=== PATIENT | male | born 1955 | race Caucasian/White ===

== ENCOUNTER 2019-06-08 04:10 | Outpatient (RCR) | payer MEDICARE, MEDICAID, SELFPAY | END 2019-06-13 00:01 | LOC: LAB 04:10 | PROVIDERS: Visit Provider Nurse Practitioner Family | DX: E11.9 Type 2 diabetes mellitus without complications (principal); I10 Essential (primary) hypertension; R33.9 Retention of urine, unspecified; G40.909 Epilepsy, unspecified, not intractable, without status epilepticus; B19.20 Unspecified viral hepatitis C 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; I48.91 Unspecified atrial fibrillation; E83.42 Hypomagnesemia; N39.0 Urinary tract infection, site not specified; E03.9 Hypothyroidism, unspecified; R94.5 Abnormal results of liver function studies | CPT/HCPCS: 36415; 80048; 83036; 85025 ==

== ENCOUNTER 2022-05-11 11:44 | Emergency (ER) | payer MEDICARE, MEDICAID, SELFPAY ==
[2022-05-11 11:45] VITALS: BP 168/81; PULSE 80; RESP 18; TEMP 36.8; O2SAT 95
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
--- NOTE | 2022-05-11 12:17 | XR_ITS ---
WS: [id number] XR hip RT 2-3V wo/w pel* [id number] REASON FOR EXAM: fall, pain laterally FINDINGS: Femoral head and neck appear intact. 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 Soft tissue calcifications along the tendon insertion surface of the lesser trochanter. Remainder of the proximal right femur is without abnormality. Moderate subchondral sclerosis and osteophytosis of the acetabulum with relative preservation of the joint space. XR/XR hip RT 2-3V wo/w pel* [id number] IMPRESSION: No acute fracture. Mild osteoarthritis of the right hip Old soft tissue injury along the insertion surface of the lesser trochanter.
[2022-05-11 12:35] LABS: Basophils % 0.6 %; Eosinophils # 0.3 10^3/uL (0.0-0.8); Eosinophils % 4.2 %; Hematocrit 36.1 % (42.0-52.0); Hemoglobin 11.6 g/dL (11.7-16.6); Lymphocytes # 1.6 10^3/uL (0.8-4.8); Lymphocytes % 25.4 %; Mean Corpuscular HGB Conc 32.1 g/dL (30.0-36.0); Mean Corpuscular Hemoglobin 24.8 pg (28.0-34.0); Mean Corpuscular Volume 77.1 fl (80-94); Mean Platelet Volume 9.5 fL (7.4-10.4); Monocytes # 0.5 10^3/uL (0.2-0.9); Monocytes % 7.5 %; Neutrophils # 3.87 10^3/uL (1.8-7.7); Nucleated Red Blood Cells % 0 %; Platelet Count 279 10^3/cmm (130-400); Red Blood Count 4.68 10^6/uL (4.1-5.3); Red Cell Distribution Width 14.6 % (12.1-15.1); White Blood Count 6.3 10^3/uL (4.0-10.0)
[2022-05-11 13:17] LABS: Alanine Aminotransferase 11 U/L (0-41); Albumin Level 3.8 g/dL (3.5-5.2); Alkaline Phosphatase 95 U/L (40-130); Anion Gap 13.9 (5-19); Aspartate Amino Transferase 16 U/L (0-40); Blood Urea Nitrogen 41 mg/dL (8-23); Calcium 9.2 mg/dL (8.5-10.5); Carbon Dioxide 25 mmol/L (22-29); Chloride 102 mmol/L (98-107); Globulin 3.3 g/dL (1.3-4.6); Glomerular Filtration Rate 55.6 mL/min (90-130); Glucose 173 mg/dL (65-115); Osmolality Calculated 296 mOsm/kg (285-295); Potassium 4.9 mmol/L (3.5-5.1); Salicylate 0.6 mg/dL (3-10); Sodium 136 mmol/L (136-145); Thyroid Stimulating Hormone 1.43 uIU/mL (0.27-4.20); Total Bilirubin 0.2 mg/dL (0.15-1.2); Total Protein 7.1 g/dL (6.6-8.7)
[2022-05-11 13:18] LABS: Acetaminophen < 5.0 ug/mL (10-30); Alcohol Level < 10 mg/dL (0-10)
--- NOTE | 2022-05-11 15:00 | ECG_ITS ---
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 Measurements Intervals [place] Rate: 77 P: 13 MO: 149 QRS: 68 QRSD: 83 T: 77 QT: 376 QTc: 427 Interpretive Statements SINUS RHYTHM NONSPECIFIC T-WAVE ABNORMALITY No previous ECG available for comparison Electronically Signed On 05-12-2022 0:13:48 MEDICAL TRANSCRIPTION SUPERVISOR by Leslee Mandujano M.D. [id number]
--- NOTE | 2022-05-11 15:05 | PC.NURSE ---
pt was found getting out of bed on his own and walking to the hallway. pt was returned to room, educated provided on fall risk and to call staff for assistance prior to getting up. pt was found up walking in room again. pt appears unsteady on his feet. charge nurse notified that sitter is needed for safety.
--- NOTE | 2022-05-11 15:08 | PC.NURSE ---
pt ambulatory to restroom with assistance from staff. unable to collect urine sample at that time
[2022-05-11] MEDS: hyDROXYzine 25 mg Capsule 50 MG PO (15:27)
[2022-05-11] MEDS: quetiapine 100 mg Tablet PO (15:27)
== END 2022-05-11 18:27 ==
PROVIDERS: Emergency Provider Emergency Medicine
DX: F20.9 Schizophrenia, unspecified (principal); S70.00XA Contusion of unspecified hip, initial encounter; X58.XXXA Exposure to other specified factors, initial encounter; F91.9 Conduct disorder, unspecified
CPT/HCPCS: 36415; 73502; 80053; 80307; 84443; 85025; 93005; 99284

== ENCOUNTER 2022-05-15 13:13 | Outpatient (CLI) | payer MEDICARE, MEDICAID, SELFPAY ==
[2022-05-15 13:36] LABS: Basophils % 0.6 %; Eosinophils # 0.3 10^3/uL (0.0-0.8); Eosinophils % 3.7 %; Hematocrit 37.5 % (42.0-52.0); Lymphocytes # 1.6 10^3/uL (0.8-4.8); Lymphocytes % 22.5 %; Mean Corpuscular Hemoglobin 24.9 pg (28.0-34.0); Mean Corpuscular Volume 77.8 fl (80-94); Mean Platelet Volume 10.1 fL (7.4-10.4); Monocytes # 0.5 10^3/uL (0.2-0.9); Monocytes % 7.3 %; Neutrophils # 4.76 10^3/uL (1.8-7.7); Neutrophils % 65.5 %; Nucleated Red Blood Cells % 0 %; Platelet Count 307 10^3/cmm (130-400); Red Blood Count 4.82 10^6/uL (4.1-5.3); Red Cell Distribution Width 14.9 % (12.1-15.1); White Blood Count 7.3 10^3/uL (4.0-10.0)
[2022-05-15 13:51] LABS: Alanine Aminotransferase 12 U/L (0-41); Alkaline Phosphatase 100 U/L (40-130); Anion Gap 18.1 (5-19); Aspartate Amino Transferase 15 U/L (0-40); Blood Urea Nitrogen 39 mg/dL (8-23); Calcium 9.4 mg/dL (8.5-10.5); Carbon Dioxide 24 mmol/L (22-29); Chloride 100 mmol/L (98-107); Globulin 3.4 g/dL (1.3-4.6); Glomerular Filtration Rate 55.6 mL/min (90-130); Glucose 125 mg/dL (65-115); Osmolality Calculated 295 mOsm/kg (285-295); Potassium 5.1 mmol/L (3.5-5.1); Sodium 137 mmol/L (136-145); Total Bilirubin 0.2 mg/dL (0.15-1.2); Total Protein 7.4 g/dL (6.6-8.7)
[2022-05-15 13:52] LABS: Estmated Average Glucose 169; Hemoglobin A1C 7.5 % (4.0-6.0)
== END 2022-05-15 13:14 | disposition home or self-care (01) ==
PROVIDERS: Visit Provider Nurse Practitioner Family
DX: E11.8 Type 2 diabetes mellitus with unspecified complications (principal)
CPT/HCPCS: 80053; 82248; 83036; 85025

== ENCOUNTER 2022-05-27 09:26 | Emergency (ER) | payer MEDICARE, MEDICAID, SELFPAY ==
[2022-05-27 09:27] VITALS: BP 166/72; PULSE 80; RESP 17; TEMP 36.9; O2SAT 96; BMI 29.7
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
[2022-05-27 10:03] LABS: Basophils # 0.1 10^3/uL (0.0-0.1); Basophils % 1.1 %; Eosinophils # 0.3 10^3/uL (0.0-0.8); Eosinophils % 5.5 %; Hematocrit 35.5 % (42.0-52.0); Lymphocytes # 1.3 10^3/uL (0.8-4.8); Lymphocytes % 22.3 %; Mean Corpuscular Hemoglobin 24.7 pg (28.0-34.0); Mean Corpuscular Volume 79.6 fl (80-94); Monocytes # 0.4 10^3/uL (0.2-0.9); Monocytes % 7.1 %; Neutrophils # 3.61 10^3/uL (1.8-7.7); Neutrophils % 63.6 %; Nucleated Red Blood Cells % 0 %; Platelet Count 212 10^3/cmm (130-400); Red Blood Count 4.46 10^6/uL (4.1-5.3); Red Cell Distribution Width 15.9 % (12.1-15.1); White Blood Count 5.7 10^3/uL (4.0-10.0)
[2022-05-27 10:23] LABS: Alanine Aminotransferase 13 U/L (0-41); Albumin Level 3.8 g/dL (3.5-5.2); Alkaline Phosphatase 95 U/L (40-130); Anion Gap 15.9 (5-19); Aspartate Amino Transferase 17 U/L (0-40); Blood Urea Nitrogen 32 mg/dL (8-23); Calcium 9.6 mg/dL (8.5-10.5); Carbon Dioxide 21 mmol/L (22-29); Chloride 104 mmol/L (98-107); Glucose 225 mg/dL (65-115); Osmolality Calculated 294 mOsm/kg (285-295); Potassium 5.9 mmol/L (3.5-5.1); Sodium 135 mmol/L (136-145); Total Bilirubin 0.2 mg/dL (0.15-1.2); Total Protein 6.8 g/dL (6.6-8.7)
[2022-05-27 10:24] LABS: Acetaminophen < 5.0 ug/mL (10-30); Salicylate < 0.3 mg/dL (3-10)
--- NOTE | 2022-05-27 10:31 | ECG_ITS ---
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 Measurements Intervals [place] Rate: 80 P: 53 NV: 171 QRS: 73 QRSD: 82 T: 83 QT: 338 QTc: 391 Interpretive Statements SINUS RHYTHM Compared to ECG 05/11/2022 15:44:02 T-wave abnormality no longer present Electronically Signed On 05-27-2022 18:11:56 DORMITORY SUPERVISOR by Leslee Mandujano M.D. [id number]
--- NOTE | 2022-05-27 10:31 | XRR_ITS ---
PROCEDURE INFORMATION: Exam: XR Chest Exam date and time: 05/27/2022 10:59 AM Age: 66 years old Clinical indication: Cough and dyspnea; Additional info: Dyspnea/cough TECHNIQUE: Imaging protocol: Radiologic exam of the chest. Views: 1 view. COMPARISON: CT abdomen pelvis w con* [id number] 03/23/2019 10:42 AM FINDINGS: Lungs: Lung volumes are somewhat decreased which may be due to body habitus. Lung [place] are clear for degree of inspiration. No infiltrates. Pleural spaces: Unremarkable. No pleural effusion. No pneumothorax. Heart/Mediastinum: Unremarkable. No cardiomegaly. Bones/joints: Unremarkable. XR/XR chest 1V portable [id number] IMPRESSION: Decreased lung volumes otherwise negative chest.
[2022-05-27 10:55] LABS: Add Urine Microscopic? YES; Bilirubin Urine Neg (Negative); Blood Urine Neg (Negative); Glucose Urine UA 2+ (Normal); Ketones Urine Negative (Negative); Leukocyte Esterase Urine Negative (Negative); Nitrate Urine Negative (Negative); Protein Urine Trace (Negative); Urine Appearance Clear (CLEAR); Urine Color Yellow (Yellow); Urobilinogen Urine Neg (Negative); pH Urine 5 (5-7)
[2022-05-27 10:57] LABS: Amphetamines Screen Urine Negative (Negative); Barbiturates Screen Urine Negative (Negative); Benzodiazepines Screen Urine Negative (Negative); Cocaine Screen Urine Negative (Negative); Opiate Screen Urine Negative (Negative); PCP Screen Urine Negative (Negative); THC Screen Urine Negative (Negative)
[2022-05-27 10:58] LABS: Add Urine Culture? No; WBC Urine RARE /hpf (0-5)
[2022-05-27 10:59] LABS: Alcohol Level < 10 mg/dL (0-10)
[2022-05-27 11:02] LABS: SARS Covid-2 Antigen negative (Negative)
[2022-05-27 12:43] LABS: Influenza A by IFA negative (Negative); Influenza B by IFA negative (Negative)
[2022-05-27] MEDS: calcium chloride 10% Syr 10 mL 1 GM IVP (14:10)
[2022-05-27] MEDS: sodium polystyrene sulfonate 15 gm/60 mL Btl 30 GM PO (14:10)
[2022-05-27 15:14] LABS: Blood Urea Nitrogen 34 mg/dL (8-23); Calcium 10.5 mg/dL (8.5-10.5); Carbon Dioxide 21 mmol/L (22-29); Chloride 105 mmol/L (98-107); Glomerular Filtration Rate 67.4 mL/min (90-130); Glucose 72 mg/dL (65-115); Osmolality Calculated 290 mOsm/kg (285-295); Sodium 137 mmol/L (136-145)
[2022-05-27 17:01] VITALS: BP 162/76; PULSE 76; O2SAT 96
[2022-05-27 18:34] VITALS: BP 149/69; PULSE 83; RESP 18; O2SAT 98
--- NOTE | 2022-05-27 18:38 | PC.NURSE ---
Pt was sleeping and rolled over and pulled his IV out. Pressure applied and bandage applied
[2022-05-27 20:56] VITALS: BP 148/72; PULSE 81; RESP 18; O2SAT 96
== END 2022-05-27 21:30 ==
PROVIDERS: Family Medicine; Emergency Provider Emergency Medicine
DX: F20.9 Schizophrenia, unspecified (principal); F41.1 Generalized anxiety disorder; R45.851 Suicidal ideations; Z20.822 Contact with and (suspected) exposure to COVID-19; E78.5 Hyperlipidemia, unspecified; E11.9 Type 2 diabetes mellitus without complications
CPT/HCPCS: 36415; 71045; 80048; 80053; 80306; 80307; 81001; 85025; 87426; 87804; 93005; 96374; 99285; J3490

== ENCOUNTER 2022-08-09 05:22 | Emergency (ER) | payer MEDICARE, MEDICAID, SELFPAY ==
[2022-08-09 05:22] VITALS: BP 184/81; PULSE 83; RESP 16; TEMP 37.1; O2SAT 100
--- NOTE | 2022-08-09 05:37 | CTR_ITS ---
PROCEDURE INFORMATION: Exam: CT Head Without Contrast Exam date and time: 08/09/2022 5:54 AM Age: 66 years old Clinical indication: Injury or trauma; Fall; Blunt trauma (contusions or hematomas); Additional info: Fall head injury TECHNIQUE: Imaging protocol: Computed tomography of the head without contrast. Radiation optimization: All CT scans at this facility use at least one of these dose optimization techniques: automated exposure control; mA and/or kV adjustment per patient size (includes targeted exams where dose is matched to clinical indication); or iterative reconstruction. REPORTING DATA: Count of CT and Cardiac NM exams in prior 12 months: This patient has received 0 known CTs and 0 known cardiac nuclear medicine studies in the 12 months prior to the current study. COMPARISON: No relevant prior studies available. RADIATION DOSE METRICS: Total DLP (mGy-cm): 1051.08 FINDINGS: Brain: There is cortical atrophy. Helm-white matter differentiation is preserved. No edema, mass effect or midline shift. No acute intracranial hemorrhage. Cerebral ventricles: No ventriculomegaly. Paranasal sinuses: Mucosal thickening noted in the maxillary sinuses. Mastoid air cells: No mastoid effusion. Bones/joints: No acute fracture. Soft tissues: Unremarkable. CT/CT head wo con* [id number] IMPRESSION: No acute intracranial abnormality.
[2022-08-09] MEDS: lidocaine-epi 1% 20 mL INJ INJECTION (05:51)
--- NOTE | 2022-08-09 06:23 | W.ED.FALL ---
HPI - Fall General: Chief Complaint: Fall Stated Complaint: FALL Time Seen by Provider: 08/09/22 05:28 Source: patient and EMS History of Present Illness: 66-year-old male half-way patient who fell striking his wheelchair with his head. He remembers the event he says. He has a history of hepatitis C as well as diabetes. Bleeding is controlled at this point. He is swelling, mild pain, and lacerations to his forehead. MD complaint: fall Onset (ago): minute(s) Fall from: standing Fall witnessed: yes, by living facility staff Place fall occurred: half-way/SNF Loss of consciousness: None Prolonged down time: no Context: tripped/slipped Location of injury: head and face Associated symptoms-after fall: Denies abdominal pain, chest pain, confusion, headache(s), lightheadedness, neck pain or short of breath Review of Systems Const: Denies: fever(s) Eyes: Denies: change in vision ENMT: Denies: throat pain Card: Denies: chest pain or lightheadedness Resp: Denies: dyspnea GI: Denies: abdominal pain Musc: Denies: neck pain Neuro: Denies: headache(s) or confusion PFSH ED PFSH: Medical History Anemia, unspecified Epilepsy, unspecified, not intractable, without status epilepticus Generalized anxiety disorder Hyperlipidemia, unspecified Hypothyroidism, unspecified Insomnia, unspecified Schizophrenia, unspecified Type 2 diabetes mellitus with hyperglycemia Unspecified disorder of adult personality and behavior Unspecified viral 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 Venous insufficiency (chronic) (peripheral) Social History Lives independently: No Housing: [facility] Physical Exam Const: COMMON NORMALS: no acute distress and alert GENERAL APPEARANCE: cooperative and frail appearing (mildly); not ill appearing HENMT: COMMON NORMALS: Normal external nose present HEAD & SCALP: abrasion (scalp, frontal), contusion (forehead) and laceration (eyebrow, L) FACE & SINUS: face symmetric NOSE: Normal external nose present and Normal nares present Eye: COMMON NORMALS: Equal, round and reactive pupils present and EOMs intact bilaterally PUPIL: Yes Equal, round and reactive pupils present Neck/C-Spine: GENERAL: Yes trachea midline CERVICAL SPINE: No Cervical spine tenderness Chest: CHEST: Yes Symmetrical chest wall rise Resp: COMMON NORMALS: normal respiratory effort, No use of accessory muscles and clear to auscultation bilaterally AUSCULTATION: clear to auscultation bilaterally Cardio: COMMON NORMALS: regular rate and regular rhythm RATE: regular rate RHYTHM: regular rhythm GI: COMMON NORMALS: Normal to inspection, nondistended, normoactive bowel sounds present and non-tender Neuro: RELL COMA SCALE: document GCS findings [place] coma scale eye opening: Spontaneous Rell coma scale verbal response: Orientated [place] coma scale motor response: Obey commands Rell coma scale total score: 15 SENSORIUM/ORIENTATION: Yes alert CRANIAL NERVES: Yes CN normal except as noted Skin: NARRATIVE SKIN EXAM: see above Course Vital Signs: Vital signs: Vital Signs Temperature 98.7 F 08/09/22 05:22 Pulse Rate 83 08/09/22 05:22 Respiratory Rate 16 08/09/22 05:22 Blood Pressure 184/81 08/09/22 05:22 Pulse Oximetry 100 08/09/22 05:22 Oxygen Delivery Me thod 08/09/22 05:22 MDM - Fall Medical Decision Making Laceration repaired with 5-0 Prolene suture. He appears to be baseline mental status allan. CT report is pending. If it is normal, he will be allowed back to the half-way. Lab Data Radiology Impressions Head CT 08/09/22 05:37 IMPRESSION: No acute intracranial abnormality. Discharge Plan Discharge Patient Disposition: Home Clinical Impression: Contusion of face, scalp and neck, Forehead laceration Condition: Stable Prescriptions: No Action atorvastatin 10 mg tablet 10 mg PO DAILY hydrochlorothiazide 50 mg tablet 50 mg PO DAILY hydroxyzine HCl 50 mg Tablet 50 mg PO TID aspirin [Aspir-81] 81 mg Tablet,Delayed Release (Dr/Ec) 81 mg PO DAILY magnesium hydroxide [Milk of Magnesia] 400 mg/5 mL Suspension 30 ml PO DAILY PRN (Reason: Constipation) carboxymethylcellulose sodium [Refresh Tears] 0.5 % Drops 1 drp OPHTHALMIC (EYE) BID levothyroxine 50 mcg tablet 50 mcg PO DAILY metformin 1,000 mg tablet 1,000 mg PO BID lisinopril 10 mg tablet 10 mg PO DAILY Glucagon Emergency Kit (human) 1 mg Recon Soln 1 mg SUBCUT Q20M PRN (Reason: Hyperglycemia) Rx Instructions: until target blood sugar attained docusate sodium 100 mg Tablet 200 mg PO DAILY loratadine 10 mg Tablet 10 mg PO DAILY insulin aspart U-100 [Novolog FlexPen U-100 Insulin] 100 unit/mL (3 mL) insulin pen See Rx Instructions .ROUTE .COMPLEX Rx Instructions: PER SLIDING SCALE DIRECTED melatonin 1 mg Tablet 1 mg PO QPM Levemir FlexTouch U-100 Insuln 100 unit/mL (3 mL) insulin pen 42 unit SUBCUT BEDTIME sertraline 150 mg Capsule 175 mg PO DAILY Seroquel 50 mg Tablet 50 mg PO DAILY Seroquel 100 mg Tablet 100 mg PO BID haloperidol lactate 5 mg/mL Solution 2 mg IM Q24H PRN (Reason: Agitation) Rx Instructions: until symptoms of delerium controlled or stopped Discharge Orders: Discharge ED (Routine); Ordered 08/09/22 Ordered By: Babak Martinez Patient Instructions: Scalp Contusion in Adults (ED), Head Laceration (ED) Activity Restrictions/Additional Instructions: Sutures out in 7 days. Wash with soap and running water. Return for worsening mental status, bleeding, worsening swelling, drainage, etc. Coding Level of Care Code ED [employer]fuels Plant Superintendent for Keaton Ramos
[2022-08-09 06:47] VITALS: BP 167/67; RESP 16; O2SAT 99
[2022-08-09 07:11] VITALS: BP 175/91
== END 2022-08-09 11:32 | disposition home or self-care (01) ==
PROVIDERS: Emergency Provider Emergency Medicine
DX: S01.112A Laceration without foreign body of left eyelid and periocular area, initial encounter (principal); S00.83XA Contusion of other part of head, initial encounter; Z79.82 Long term (current) use of aspirin; Z79.84 Long term (current) use of oral hypoglycemic drugs; Z79.4 Long term (current) use of insulin; E78.5 Hyperlipidemia, unspecified; E11.9 Type 2 diabetes mellitus without complications; W19.XXXA Unspecified fall, initial encounter; Y92.129 Unspecified place in nursing home as the place of occurrence of the external cause
CPT/HCPCS: 12011; 70450; 99284

== ENCOUNTER 2022-10-07 11:48 | Outpatient (CLI) | payer MEDICARE, MEDICAID, SELFPAY ==
[2022-10-07 12:40] LABS: Anion Gap 15.9 (5-19); Blood Urea Nitrogen 25 mg/dL (8-23); Carbon Dioxide 24 mmol/L (22-29); Chloride 97 mmol/L (98-107); Glucose 119 mg/dL (65-115); Osmolality Calculated 280 mOsm/kg (285-295); Potassium 4.9 mmol/L (3.5-5.1); Sodium 132 mmol/L (136-145)
== END 2022-10-07 11:49 | disposition home or self-care (01) ==
PROVIDERS: Visit Provider Nurse Practitioner Family
DX: E87.1 Hypo-osmolality and hyponatremia (principal)
CPT/HCPCS: 80048

== ENCOUNTER 2022-12-21 10:59 | Outpatient (CLI) | payer MEDICARE, MEDICAID, SELFPAY ==
[2022-12-21 11:34] LABS: Blood Urea Nitrogen 25 mg/dL (8-23); Calcium 8.9 mg/dL (8.5-10.5); Carbon Dioxide 22 mmol/L (22-29); Chloride 89 mmol/L (98-107); Glomerular Filtration Rate 55.4 mL/min (90-130); Glucose 172 mg/dL (65-115); Osmolality Calculated 266 mOsm/kg (285-295); Sodium 124 mmol/L (136-145)
[2022-12-21 11:38] LABS: Anion Gap 18.1 (5-19); Potassium 5.1 mmol/L (3.5-5.1)
== END 2022-12-21 11:00 | disposition home or self-care (01) ==
LOC: LAB 11:00
PROVIDERS: Visit Provider Nurse Practitioner Family
DX: Z01.89 Encounter for other specified special examinations (principal)
CPT/HCPCS: 80048

== ENCOUNTER → 2023-02-02 09:56 | Outpatient (BNVA) | payer MEDICARE, MEDICAID, SELFPAY | PROVIDERS: Visit Provider Podiatrist Foot & Ankle Surgery | DX: I73.9 Peripheral vascular disease, unspecified (principal); L60.3 Nail dystrophy; Z79.84 Long term (current) use of oral hypoglycemic drugs; Z79.4 Long term (current) use of insulin; E11.9 Type 2 diabetes mellitus without complications | CPT/HCPCS: 11721; 99203 ==

== ENCOUNTER → 2023-05-05 10:07 | Outpatient (BNVA) | payer MEDICARE, MEDICAID, SELFPAY | PROVIDERS: Visit Provider Podiatrist Foot & Ankle Surgery | DX: E11.8 Type 2 diabetes mellitus with unspecified complications (principal); I73.9 Peripheral vascular disease, unspecified; L60.3 Nail dystrophy; Z79.4 Long term (current) use of insulin; Z79.84 Long term (current) use of oral hypoglycemic drugs | CPT/HCPCS: 11721 ==

== ENCOUNTER 2023-06-10 13:11 | Emergency (ER) | payer MEDICARE, MEDICAID, SELFPAY ==
[2023-06-10] VITALS (9 sets, daily range): BP systolic 156–207; BP diastolic 71–110; PULSE 64–100; RESP 16–20; TEMP 37; O2SAT 95–97; BMI 29.5
--- NOTE | 2023-06-10 13:35 | ECG_ITS ---
[facility] Test Date: 2023-06-10 Pat Name: Jose J Oneal Department: Room: Gender: Male Windshield Repair Technician: : 1955 Requested By: Wai Ding Order Number: [id number] Melvin MD: Juan Benites M.D. Measurements Intervals [place] Rate: 65 P: 59 W[place]: 171 QRS: 81 QRSD: 82 T: 85 QT: 414 QTc: 431 Interpretive Statements SINUS RHYTHM Compared to ECG 05/27/2022 10:51:03 No significant changes Electronically Signed On 06-10-2023 15:12:06 FORMING DEPARTMENT SUPERVISOR by Juan Benites M.D. [id number]
[2023-06-10 13:45] LABS: Basophils # 0.1 10^3/uL (0.0-0.1); Basophils % 0.8 %; Eosinophils # 0.4 10^3/uL (0.0-0.8); Eosinophils % 5.5 %; Hematocrit 35.9 % (37-53); Lymphocytes # 1.2 10^3/uL (0.8-4.8); Mean Corpuscular HGB Conc 32.6 g/dL (30-55); Mean Corpuscular Hemoglobin 25.2 pg (27-33); Mean Corpuscular Volume 77.4 fl (82-101); Mean Platelet Volume 10.1 fL (7.4-10.4); Monocytes # 0.6 10^3/uL (0.2-0.9); Monocytes % 8.8 %; Neutrophils # 4.16 10^3/uL (1.8-7.7); Neutrophils % 65.4 %; Nucleated Red Blood Cells % 0 %; Platelet Count 189 10^3/cmm (157-399); Red Blood Count 4.64 10^6/uL (3.85-5.65); Red Cell Distribution Width 14.8 % (12.1-15.1); White Blood Count 6.36 10^3/uL (3.29-11.43)
[2023-06-10 14:08] LABS: Alanine Aminotransferase 18 U/L (0-41); Albumin Level 3.3 g/dL (3.5-5.2); Alkaline Phosphatase 100 U/L (40-130); Anion Gap 18.7 (5-19); Aspartate Amino Transferase 14 U/L (0-40); Blood Urea Nitrogen 31 mg/dL (8-23); Calcium 8.9 mg/dL (8.5-10.5); Carbon Dioxide 22 mmol/L (22-29); Chloride 98 mmol/L (98-107); Globulin 3.4 g/dL (1.3-4.6); Glomerular Filtration Rate 40.7 mL/min (90-130); Glucose 328 mg/dL (65-115); Osmolality Calculated 297 mOsm/kg (285-295); Potassium 4.7 mmol/L (3.5-5.1); Sodium 134 mmol/L (136-145); Total Bilirubin 0.2 mg/dL (0.15-1.2); Total Protein 6.7 g/dL (6.6-8.7)
[2023-06-10 14:10] LABS: Acetaminophen < 5.0 ug/mL (10-30); Alcohol Level < 10 mg/dL (0-10); Salicylate < 0.3 mg/dL (3-10)
--- NOTE | 2023-06-10 14:25 | ED.C_ITS ---
HPI - Psych 2 General: Chief Complaint: Psychiatric Symptoms Stated Complaint: SI Time Seen by Provider: 06/10/23 13:12 Source: EMS Mode of arrival: EMS Limitations: no limitations History of Present Illness: 67-year-old male presents here from [facility] home with depression. He had made statements about being depressed and suicidal at the half-way when I speak to him he states he is severely depressed states he has not seen his kids in quite some time it is making him feel down but he states he is not suicidal he has no plans to kill himself states he is just very depressed. Denies any worsening improving factors. Associated symptoms: Reports depression; Deny suicidal ideation Review of Systems 2 Const: Denies: fever(s), chills, body aches or change in appetite ENMT: Denies: throat pain or dental pain Card: Denies: chest pain Resp: Denies: dyspnea GI: Denies: abdominal pain, nausea, vomiting or diarrhea Musc: Denies: neck pain or back pain Skin/Breast: Denies: rash Neuro: Denies: headache(s) Psych: Reports: depression; Denies: suicidal ideation PFSH ED 2 PFSH: Medical History Anemia, unspecified Epilepsy, unspecified, not intractable, without status epilepticus Generalized anxiety disorder Hyperlipidemia, unspecified Hypothyroidism, unspecified Insomnia, unspecified Schizophrenia, unspecified Type 2 diabetes mellitus with hyperglycemia Unspecified disorder of adult personality and behavior Unspecified viral 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 Venous insufficiency (chronic) (peripheral) Social History Lives independently: No Housing: Long Term Physical Exam 2 Const: COMMON NORMALS: no acute distress, patient oriented x3 and healthy appearing HENMT: COMMON NORMALS: normocephalic and atraumatic HEAD & SCALP: n ormocephalic and atraumatic Eye: COMMON NORMALS: Equal, round and reactive pupils present and EOMs intact bilaterally PUPIL: Yes Equal, round and reactive pupils present Neck/C-Spine: COMMON NORMALS: full ROM and supple Chest: COMMONS NORMALS: normal inspection of the chest Resp: COMMON NORMALS: normal respiratory effort Cardio: COMMON NORMALS: regular rate, regular rhythm and No murmurs present (Cardio) RATE: regular rate RHYTHM: regular rhythm Extremity: COMMON NORMALS: normal to inspection and full ROM Neuro: COMMON NORMALS: patient oriented x3, moves all extremities and no focal motor deficits Psych: COMMON NORMALS: mental status grossly normal, Normal thought process present and cooperative MOOD & AFFECT: Yes depressed mood THOUGHT PROCESS: Normal thought process present Skin: COMMON NORMALS: no rashes or lesions noted and no wounds GENERAL SKIN EXAM: no rashes or lesions noted Course 2 Vital Signs: Vital signs: Vital Signs Temperature 98.6 F 06/10/23 13:12 Pulse Rate 64 06/10/23 14:35 Respiratory Rate 17 06/10/23 14:35 Blood Pressure 156/91 06/10/23 14:35 Pulse Oximetry 96 06/10/23 14:35 Oxygen Delivery Me thod Room Air 06/10/23 14:35 MDM - Psych Medical Decision Making Patient presents here with depression he is not suicidal. Patient evaluated by her psychiatrist Dr. [place] who agrees he is stable for discharge back to the half-way he is to follow-up with [facility] return if worsening he understands agrees plan Medical Records I reviewed the patient's medical records. Lab Data I reviewed the patient's lab results. 06/10/23 13:32 06/10/23 13:32 Laboratory Results WBC 6.36 10^3/uL (3.29-11.43) 06/10/23 13:32 RBC 4.64 10^6/uL (3.85-5.65) 06/10/23 13:32 Hgb 11.70 g/dL (11.27-16.99) 06/10/23 13:32 Hct 35.9 % (37-53) L 06/10/23 13:32 MCV 77.4 fl (82-101) L 06/10/23 13:32 MCH 25.2 pg (27-33) L 06/10/23 13:32 MCHC 32.6 g/dL (30-55) 06/10/23 13:32 RDW 14.8 % (12.1-15.1) 06/10/23 13:32 Plt Count 189 10^3/cmm (157-399) 06/10/23 13:32 MPV 10.1 fL (7.4-10.4) 06/10/23 13:32 Neut % (Auto) 65.4 % 06/10/23 13:32 Lymph % (Auto) 19.0 % 06/10/23 13:32 [place] % (Auto) 8.8 % 06/10/23 13:32 Eos % (Auto) 5.5 % 06/10/23 13:32 Baso % (Auto) 0.8 % 06/10/23 13:32 Neut # (Auto) 4.16 10^3/uL (1.8-7.7) 06/10/23 13:32 Lymph # (Auto) 1.2 10^3/uL (0.8-4.8) 06/10/23 13:32 [place] # (Auto) 0.6 10^3/uL (0.2-0.9) 06/10/23 13:32 Eos # (Auto) 0.4 10^3/uL (0.0-0.8) 06/10/23 13:32 Baso # (Auto) 0.1 10^3/uL (0.0-0.1) 06/10/23 13:32 Nucleated RBC % (auto) 0 % 06/10/23 13:32 Nucleated RBCs # 0.0 /100WBC 06/10/23 13:32 Sodium 134 mmol/L (136-145) L 06/10/23 13:32 Potassium 4.7 mmol/L (3.5-5.1) 06/10/23 13:32 Chloride 98 mmol/L (98-107) 06/10/23 13:32 Carbon Dioxide 22 mmol/L (22-29) 06/10/23 13:32 Anion Gap 18.7 (5-19) 06/10/23 13:32 BUN 31 mg/dL (8-23) H 06/10/23 13:32 Creatinine 1.7 mg/dL (0.7-1.2) H 06/10/23 13:32 GFR Calculation 40.7 mL/min (90-130) L 06/10/23 13:32 Glucose 328 mg/dL (65-115) H 06/10/23 13:32 Calculated Osmolality 297 mOsm/kg (285-295) H 06/10/23 13:32 Calcium 8.9 mg/dL (8.5-10.5) 06/10/23 13:32 Total Bilirubin 0.2 mg/dL (0.15-1.2) 06/10/23 13:32 AST 14 U/L (0-40) 06/10/23 13:32 ALT 18 U/L (0-41) 06/10/23 13:32 Alkaline Phosphatase 100 U/L (40-130) 06/10/23 13:32 Total Protein 6.7 g/dL (6.6-8.7) 06/10/23 13:32 Albumin 3.3 g/dL (3.5-5.2) L 06/10/23 13:32 Globulin 3.4 g/dL (1.3-4.6) 06/10/23 13:32 Salicylates < 0.3 mg/dL (3-10) L 06/10/23 13:32 Urine Opiates Screen Negative ng/mL (Negative) 06/10/23 14:23 Acetaminophen < 5.0 ug/mL (10-30) L 06/10/23 13:32 Ur Barbiturates Screen Negative ng/mL (Negative) 06/10/23 14:23 Ur Phencyclidine Scrn Negative ng/mL (Negative) 06/10/23 14:23 Ur Amphetamines Screen Negative ng/mL (Negative) 06/10/23 14:23 U Benzodiazepines Scrn Negative ng/mL (Negative) 06/10/23 14:23 Urine Cocaine Screen Negative ng/mL (Negative) 06/10/23 14:23 U Marijuana (THC) Screen Negative ng/mL (Negative) 06/10/23 14:23 Ethyl Alcohol < 10 mg/dL (0-10) 06/10/23 13:32 SARS-CoV-2 Ag (Rapid) negative (Negative) 06/10/23 14:02 No radiology studies performed this visit Discharge Plan Discharge Patient Disposition: Home Clinical Impression: Schizophrenia, unspecified Depression Qualifiers: Depression Type: unspecified Qualified Code(s): F32.A - Depression, unspecified Condition: Stable Prescriptions: No Action atorvastatin 10 mg tablet 10 mg PO QPM hydroxyzine HCl 50 mg Tablet 50 mg PO TID aspirin [Aspir-81] 81 mg Tablet,Delayed Release (Dr/Ec) 81 mg PO DAILY magnesium hydroxide [Milk of Magnesia] 400 mg/5 mL Suspension 30 ml PO DAILY PRN (Reason: Constipation) carboxymethylcellulose sodium [Refresh Tears] 0.5 % Drops 1 drp OPHTHALMIC (EYE) BID PRN (Reason: Dry Eye(S)) levothyroxine 50 mcg tablet 50 mcg PO DAILY metformin 1,000 mg tablet 1,000 mg PO BID Glucagon Emergency Kit (human) 1 mg Recon Soln 1 mg SUBCUT Q20M PRN (Reason: Hyperglycemia) Rx Instructions: until target blood sugar attained docusate sodium 100 mg Tablet 200 mg PO DAILY loratadine 10 mg Tablet 10 mg PO DAILY melatonin 1 mg Tablet 1 mg PO QPM PRN (Reason: Sleep) Levemir FlexTouch U100 Insulin 100 unit/mL (3 mL) insulin pen 39 unit SUBCUT BID Trileptal 300 mg Tablet 300 mg PO BID amlodipine 10 mg tablet 10 mg PO DAILY hydrochlorothiazide 25 mg tablet 25 mg PO DAILY lisinopril 40 mg tablet 40 mg PO DAILY Abilify 10 mg Tablet 10 mg PO DAILY metoprolol tartrate 25 mg tablet 25 mg PO BID sodium chloride 1,000 mg Tablet,Soluble 1,000 mg PO DAILY fluoxetine 60 mg tablet 60 mg PO DAILY Discharge Orders: Discharge ED (Routine); Ordered 06/10/23 Ordered By: Wai Ding Discharge Diet: Advance as tolerated Discharge Activity: Resume usual activity Patient Instructions: Depression (ED) Coding Level of Care Code ED Mission Manager for Keaton Ramos
[2023-06-10 14:28] LABS: SARS Covid-2 Antigen negative (Negative)
[2023-06-10 14:47] LABS: Amphetamines Screen Urine Negative (Negative); Barbiturates Screen Urine Negative (Negative); Benzodiazepines Screen Urine Negative (Negative); Opiate Screen Urine Negative (Negative)
[2023-06-10 14:58] LABS: Cocaine Screen Urine Negative (Negative); PCP Screen Urine Negative (Negative); THC Screen Urine Negative (Negative)
--- NOTE | 2023-06-10 15:01 | PC.PHAR ---
have requested a mar from [facility] 3 times in the last hour
--- NOTE | 2023-06-10 16:22 | DCPLANNER ---
Message sent to [facility] on 06/10/23 at [id number]. [facility] to contact patient
--- NOTE | 2023-06-10 19:01 | PC.NURSE ---
This nurse spoke with guardian Ame, regarding transportation of patient back to [facility]. Ame said she was unavailable to transport patient herself, but gave nursing staff verbal consent to transport patient back to facility.
[2023-06-10] MEDS: hyDRALAzine 20 mg/mL INJ 1 mL 10 MG IM (19:36)
--- NOTE | 2023-06-10 21:11 | PC.NURSE ---
Report called to Subha at [facility]. Charge nurse informed that patient was headed back to residence with paperwork, belongings.
== END 2023-06-10 21:13 | disposition home or self-care (01) ==
PROVIDERS: Emergency Provider Emergency Medicine
DX: F32.A Depression, unspecified (principal); F20.9 Schizophrenia, unspecified; Z79.82 Long term (current) use of aspirin; Z79.4 Long term (current) use of insulin; Z79.84 Long term (current) use of oral hypoglycemic drugs; Z11.52 Encounter for screening for COVID-19; E78.5 Hyperlipidemia, unspecified; E11.9 Type 2 diabetes mellitus without complications; Z86.19 Personal history of other infectious and parasitic diseases
CPT/HCPCS: 36415; 80053; 80306; 80307; 85025; 87426; 93005; 96372; 99284; J0360

== ENCOUNTER 2024-01-28 08:14 | Emergency (ER) | payer MEDICARE, MEDICAID, SELFPAY ==
[2024-01-28 08:14] VITALS: BP 152/96; PULSE 70; RESP 17; TEMP 36.8; O2SAT 85; BMI 33.2
--- NOTE | 2024-01-28 08:18 | XR_ITS ---
WS: [id number] Examination: XR chest 1V portable [id number] Reason for Exam: psych Date: March 29, 2024 Comparison: None. Findings: The heart is not enlarged. The mediastinum is not widened on this rotated AP portable film There is no pulmonary edema or large effusion. There is no dense consolidation. XR/XR chest 1V portable [id number] Impression: No acute lung process is identified.
--- NOTE | 2024-01-28 08:31 | ED.C_ITS ---
HPI - Psych 2 General: Chief Complaint: Psychiatric Symptoms Stated Complaint: psych problems Time Seen by Provider: 01/28/24 08:14 Source: patient and EMS Mode of arrival: EMS Limitations: no limitations History of Present Illness: 68-year-old male with history of schizop hrenia along with TBI with behavioral disturbances patient lives at [facility]. Patient got angry this morning states he was in argument with another resident they did call them and asked: He instructed them patient been sent here for his violent behavior for likely psych admission has had previous psych admissions to likely in the past. He has been calm and cooperative here. Spoke to the [facility] and they state that he has been on every 15 checks the last day because he has made suicidal statements as well Associated symptoms: Deny depression Related Data Home Medications Medication Instructions Recorded Confirmed aspirin 81 mg tablet,delayed 81 mg PO QAM 05/11/22 01/28/24 release atorvastatin 10 mg tablet 10 mg PO QPM 05/11/22 01/28/24 carboxymethylcellulose sodium 0.5 1 drp ophthalmic (eye) BID PRN Dry 05/11/22 01/28/24 % eye drops (Refresh Tears) Eye(S) docusate sodium 100 mg tablet 200 mg PO QAM 05/11/22 01/28/24 glucagon 1 mg solution for 1 mg SUBCUT Q20M PRN Hyperglycemia 05/11/22 01/28/24 injection (Glucagon Emergency Kit) levothyroxine 50 mcg tablet 50 mcg PO QAM 05/11/22 01/28/24 loratadine 10 mg tablet 10 mg PO QAM 05/11/22 01/28/24 magnesium hydroxide 400 mg/5 mL 30 ml PO DAILY PRN Constipation 05/11/22 01/28/24 oral suspension (Milk of Magnesia) melatonin 1 mg tablet 1 mg PO QPM PRN Sleep 05/11/22 01/28/24 metformin 1,000 mg tablet 1,000 mg PO BID 05/11/22 01/28/24 amlodipine 10 mg tablet 10 mg PO DAILY 06/10/23 01/28/24 hydrochlorothiazide 25 mg tablet 25 mg PO DAILY 06/10/23 01/28/24 lisinopril 40 mg tablet 40 mg PO QAM 06/10/23 01/28/24 metoprolol tartrate 25 mg tablet 25 mg PO BID 06/10/23 01/28/24 sodium chloride 1,000 mg soluble 1,000 mg PO QAM 06/10/23 01/28/24 tablet cyanocobalamin (vitamin B-12) 250 250 mcg PO DAILY 12/01/23 01/28/24 mcg tablet insulin degludec 100 unit/mL 35 unit SUBCUT BID 12/01/23 01/28/24 subcutaneous solution (Tresiba U-100 Insulin) acetaminophen 325 mg tablet 650 mg PO Q4H PRN PAIN/FEVER 01/28/24 01/28/24 buspirone 10 mg tablet 10 mg PO TID 01/28/24 01/28/24 Previous Rx's Medication Instructions Recorded aripiprazole 10 mg tablet (Abilify) 10 mg PO DAILY #30 tabs 08/16/23 fluoxetine 20 mg capsule 60 mg (3 x 20 mg) PO DAILY #90 caps 08/16/23 hydroxyzine HCl 50 mg tablet 50 mg PO TID #90 tabs 08/16/23 oxcarbazepine 300 mg tablet 300 mg PO BID #60 tabs 08/16/23 (Trileptal) Allergies Allergy/AdvReac Type Severity Reaction Status Date / Time No Known Allergies Allergy Verified 12/01/23 10:24 Review of Systems 2 Const: Denies: fever(s), chills, body aches or change in appetite ENMT: Denies: throat pain or dental pain Card: Denies: chest pain Resp: Denies: dyspnea GI: Denies: abdominal pain, nausea, vomiting or diarrhea Musc: Denies: neck pain or back pain Skin/Breast: Denies: rash Neuro: Denies: headache(s) Psych: Reports: irritability; Denies: depression PFSH ED 2 PFSH: Medical History Psychiatric care Hyperlipidemia, unspecified Anemia, unspecified Epilepsy, unspecified, not intractable, without status epilepticus Venous insufficiency (chronic) (peripheral) Hypothyroidism, unspecified Type 2 diabetes mellitus with hyperglycemia Generalized anxiety disorder Unspecified viral 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 Insomnia, unspecified Unspecified disorder of adult personality and behavior Schizophrenia, unspecified Social History Lives independently: No Housing: Half-Way Physical Exam 2 Const: COMMON NORMALS: no acute distress, patient oriented x3 and healthy appearing HENMT: COMMON NORMALS: normocephalic and atraumatic HEAD & SCALP: n ormocephalic and atraumatic Eye: COMMON NORMALS: Equal, round and reactive pupils present and EOMs intact bilaterally PUPIL: Yes Equal, round and reactive pupils present Neck/C-Spine: COMMON NORMALS: full ROM and supple Chest: COMMONS NORMALS: normal inspection of the chest and normal palpation of entire chest wall Resp: COMMON NORMALS: normal respiratory effort, No retractions, No use of accessory muscles and clear to auscultation bilaterally AUSCULTATION: clear to auscultation bilaterally Cardio: COMMON NORMALS: regular rate, regular rhythm and No murmurs present (Cardio) RATE: regular rate RHYTHM: regular rhythm GI: COMMON NORMALS: Normal to inspection, nondistended, normoactive bowel sounds present, Soft to palpation, non-tender and no masses PALPATION: Yes Soft to palpation Extremity: COMMON NORMALS: normal to inspection and full ROM Neuro: COMMON NORMALS: patient oriented x3, moves all extremities and no focal motor deficits Psych: COMMON NORMALS: mental status grossly normal, Normal thought process present and cooperative THOUGHT PROCESS: Normal thought process present Skin: COMMON NORMALS: no rashes or lesions noted and no wounds GENERAL SKIN EXAM: no rashes or lesions noted Course 2 Vital Signs: Vital signs: Vital Signs Temperature 98.2 F 01/28/24 08:14 Pulse Rate 70 01/28/24 08:14 Respiratory Rate 17 01/28/24 08:14 Blood Pressure 152/96 01/28/24 08:14 Pulse Oximetry 85 L 01/28/24 08:14 MDM - Psych Medical Decision Making Patient presents here with anger outburst also history of schizophrenia patient here for [facility] for [facility] placement he was accepted to [facility] will transfer there for higher level of care geriatric psych Medical Records I reviewed the patient's medical records. Lab Data I reviewed the patient's lab results. 01/28/24 08:31 01/28/24 08:31 Radiology Impressions Chest X-Ray 01/28/24 08:18 Impression: No acute lung process is identified. Laboratory Results WBC 7.25 10^3/uL (3.29-11.43) 01/28/24 08:31 RBC 4.41 10^6/uL (3.85-5.65) 01/28/24 08:31 Hgb 11.50 g/dL (11.27-16.99) 01/28/24 08:31 Hct 35.0 % (37-53) L 01/28/24 08:31 MCV 79.4 fl (82-101) L 01/28/24 08:31 MCH 26.1 pg (27-33) L 01/28/24 08:31 MCHC 32.9 g/dL (30-55) 01/28/24 08:31 RDW 15.0 % (12.1-15.1) 01/28/24 08:31 Plt Count 212 10^3/cmm (157-399) 01/28/24 08:31 MPV 9.3 fL (7.4-10.4) 01/28/24 08:31 Neut % (Auto) 68.1 % 01/28/24 08:31 Lymph % (Auto) 14.3 % 01/28/24 08:31 [place] % (Auto) 8.4 % 01/28/24 08:31 Eos % (Auto) 7.6 % 01/28/24 08:31 Baso % (Auto) 1.0 % 01/28/24 08:31 Neut # (Auto) 4.94 10^3/uL (1.8-7.7) 01/28/24 08:31 Lymph # (Auto) 1.0 10^3/uL (0.8-4.8) 01/28/24 08:31 [place] # (Auto) 0.6 10^3/uL (0.2-0.9) 01/28/24 08:31 Eos # (Auto) 0.6 10^3/uL (0.0-0.8) 01/28/24 08:31 Baso # (Auto) 0.1 10^3/uL (0.0-0.1) 01/28/24 08:31 Nucleated RBC % (auto) 0 % 01/28/24 08: Nucleated RBCs # 0.0 /100WBC 01/28/24 08:31 Sodium 137 mmol/L (136-145) 01/28/24 08:31 Potassium 4.9 mmol/L (3.5-5.1) 01/28/24 08:31 Chloride 104 mmol/L (98-107) 01/28/24 08:31 Carbon Dioxide 19 mmol/L (22-29) L 01/28/24 08:31 Anion Gap 18.9 (5-19) 01/28/24 08:31 BUN 33 mg/dL (8-23) H 01/28/24 08:31 Creatinine 1.5 mg/dL (0.7-1.2) H 01/28/24 08:31 GFR Calculation 46.8 mL/min (90-130) L 01/28/24 08:31 Glucose 127 mg/dL (65-115) H 01/28/24 08:31 Calculated Osmolality 293 mOsm/kg (285-295) 01/28/24 08:31 Calcium 8.4 mg/dL (8.5-10.5) L 01/28/24 08:31 Total Bilirubin 0.2 mg/dL (0.15-1.2) 01/28/24 08:31 AST 18 U/L (0-40) 01/28/24 08:31 ALT 16 U/L (0-41) 01/28/24 08:31 Alkaline Phosphatase 103 U/L (40-130) 01/28/24 08:31 Total Protein 6.2 g/dL (6.6-8.7) L 01/28/24 08:31 Albumin 3.1 g/dL (3.5-5.2) L 01/28/24 08:31 Globulin 3.1 g/dL (1.3-4.6) 01/28/24 08:31 TSH 1.81 uIU/mL (0.27-4.20) 01/28/24 08:31 Free T4 0.84 ng/dL (0.82-1.77) 01/28/24 08:31 Salicylates < 0.3 mg/dL (3-10) L 01/28/24 08:31 Urine Opiates Screen Negative ng/mL (Negative) 01/28/24 08:52 Acetaminophen < 5.0 ug/mL (10-30) L 01/28/24 08:31 Ur Barbiturates Screen Negative ng/mL (Negative) 01/28/24 08:52 Ur Phencyclidine Scrn Negative ng/mL (Negative) 01/28/24 08:52 Ur Amphetamines Screen Negative ng/mL (Negative) 01/28/24 08:52 U Benzodiazepines Scrn Negative ng/mL (Negative) 01/28/24 08:52 Urine Cocaine Screen Negative ng/mL (Negative) 01/28/24 08:52 U Marijuana (THC) Screen Negative ng/mL (Negative) 01/28/24 08:52 Ethyl Alcohol < 10 mg/dL (0-10) 01/28/24 08:31 Influenza Type A Ag negative (Negative) 01/28/24 08:55 Influenza Type B Ag negative (Negative) 01/28/24 08:55 RSV Antigen Negative (Negative) 01/28/24 08:55 SARS-CoV-2 Ag (Rapid) negative (Negative) 01/28/24 08:55 All radiology interpretation(s) finalized by discharge EKG Data EKG 1: I personally reviewed and interpreted this EKG as follows: EKG interpretation date: 01/28/24 EKG interpretation time: 08:57 Interpretation: nsr hr [address] elevation qrs 81 qtc 412 Discharge Plan Discharge Patient Disposition: Xfer Short-Term Hosp Clinical Impression: Schizophrenia, unspecified, Outbursts of anger Condition: Stable Coding Level of Care Code ED J2Ee Java Developer for Keaton Ramos
--- NOTE | 2024-01-28 08:37 | PC.NURSE ---
Per Sherry, intermediate staff, the patient has been on 15 minute suicide watch due to statements he had been making. Patient has threatened to also attack staff and other residents. I asked the nurse at [facility] to please send over nurses notes reflecting this because the patient denies any suicidal thoughts.
[2024-01-28 08:39] LABS: Basophils # 0.1 10^3/uL (0.0-0.1); Eosinophils # 0.6 10^3/uL (0.0-0.8); Eosinophils % 7.6 %; Lymphocytes % 14.3 %; Mean Corpuscular HGB Conc 32.9 g/dL (30-55); Mean Corpuscular Hemoglobin 26.1 pg (27-33); Mean Corpuscular Volume 79.4 fl (82-101); Mean Platelet Volume 9.3 fL (7.4-10.4); Monocytes # 0.6 10^3/uL (0.2-0.9); Monocytes % 8.4 %; Neutrophils # 4.94 10^3/uL (1.8-7.7); Neutrophils % 68.1 %; Nucleated Red Blood Cells % 0 %; Platelet Count 212 10^3/cmm (157-399); Red Blood Count 4.41 10^6/uL (3.85-5.65); White Blood Count 7.25 10^3/uL (3.29-11.43)
--- NOTE | 2024-01-28 08:57 | ECG_ITS ---
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 Measurements Intervals [place] Rate: 68 P: 22 CA: 178 QRS: 58 QRSD: 81 T: 74 QT: 395 QTc: 421 Interpretive Statements SINUS RHYTHM Compared to ECG 06/10/2023 13:35:02 No significant changes Electronically Signed On 01-28-2024 13:31:44 CDT by Juan Benites M.D. [email or web address]
[2024-01-28 09:10] LABS: Alanine Aminotransferase 16 U/L (0-41); Albumin Level 3.1 g/dL (3.5-5.2); Alkaline Phosphatase 103 U/L (40-130); Anion Gap 18.9 (5-19); Aspartate Amino Transferase 18 U/L (0-40); Blood Urea Nitrogen 33 mg/dL (8-23); Calcium 8.4 mg/dL (8.5-10.5); Carbon Dioxide 19 mmol/L (22-29); Chloride 104 mmol/L (98-107); Free T4 Free Thyroxine 0.84 ng/dL (0.82-1.77); Globulin 3.1 g/dL (1.3-4.6); Glomerular Filtration Rate 46.8 mL/min (90-130); Glucose 127 mg/dL (65-115); Osmolality Calculated 293 mOsm/kg (285-295); Potassium 4.9 mmol/L (3.5-5.1); Sodium 137 mmol/L (136-145); Thyroid Stimulating Hormone 1.81 uIU/mL (0.27-4.20); Total Bilirubin 0.2 mg/dL (0.15-1.2); Total Protein 6.2 g/dL (6.6-8.7)
[2024-01-28 09:11] LABS: Acetaminophen < 5.0 ug/mL (10-30); Alcohol Level < 10 mg/dL (0-10); Salicylate < 0.3 mg/dL (3-10)
[2024-01-28 09:16] LABS: Amphetamines Screen Urine Negative (Negative); Barbiturates Screen Urine Negative (Negative); Benzodiazepines Screen Urine Negative (Negative); Cocaine Screen Urine Negative (Negative); Opiate Screen Urine Negative (Negative); PCP Screen Urine Negative (Negative); THC Screen Urine Negative (Negative)
[2024-01-28 09:19] LABS: RSV Transfer Patient (ED) Negative (Negative)
[2024-01-28 09:20] LABS: Influenza A by IFA negative (Negative); Influenza B by IFA negative (Negative); SARS Covid-2 Antigen negative (Negative)
--- NOTE | 2024-01-28 18:46 | PC.NURSE ---
Assumed care from Loretta CULVER at shift change; was informed that patient report was called to [facility] and patient currently awaiting transfer.
[2024-01-28 19:42] VITALS: BP 173/84; PULSE 65; O2SAT 96
--- NOTE | 2024-01-28 22:07 | PC.NURSE ---
Report was given to [facility] EMS crew by Anita CULVER; patient was transferred via ambulance to [facility] with all paperwork and belongings.
[2024-01-28 22:08] VITALS: BP 162/81; PULSE 64; O2SAT 96
[2024-01-28 22:09] VITALS: BP 162/81; PULSE 64; O2SAT 96
== END 2024-01-28 22:10 | disposition short-term general hospital (02) ==
PROVIDERS: Emergency Provider Emergency Medicine
DX: F20.9 Schizophrenia, unspecified (principal); R45.4 Irritability and anger; Z11.52 Encounter for screening for COVID-19; E78.5 Hyperlipidemia, unspecified; E11.9 Type 2 diabetes mellitus without complications; Z86.19 Personal history of other infectious and parasitic diseases
CPT/HCPCS: 36415; 71045; 80053; 80306; 80307; 84439; 84443; 85025; 87426; 87804; 87899; 93005; 99285

== ENCOUNTER 2024-03-27 09:21 | Emergency (ER) | payer MEDICARE, MEDICAID, SELFPAY ==
[2024-03-27 09:22] VITALS: BP 137/75; PULSE 66; RESP 18; TEMP 36.7; O2SAT 97; BMI 32.1
--- NOTE | 2024-03-27 09:27 | XRR_ITS ---
PROCEDURE INFORMATION: Exam: XR Right Ankle Exam date and time: 03/27/2024 9:32 AM Age: 68 years old Clinical indication: Injury or trauma; Other: Twisted ankle; Sprain or strain; Right; Additional info: Discomfort TECHNIQUE: Imaging protocol: Radiologic exam of the right ankle. Views: 3 or more views. COMPARISON: No relevant prior studies available. FINDINGS: Bones/joints: Oblique/comminuted fracturing of the distal fibula. Questionable abrupt cortical contour abnormality of the posterior malleolus of the tibia. Heel spur. Soft tissues: Diffuse soft tissue swelling about the ankle more prominent about the lateral aspect. Vasculature: Peripheral arterial vascular disease. XR/XR ankle RT min 3V* [id number] IMPRESSION: 1. Oblique/comminuted fracture of the distal fibula with associated soft tissue swelling. 2. Questionable contour abnormality of the posterior malleolus suggesting possible posterior malleolar fracture. CT should be performed for further assessment.
[2024-03-27 09:33] VITALS: BP 137/75; PULSE 67; O2SAT 96
--- NOTE | 2024-03-27 10:04 | ED_ITS ---
HPI - Extremity Problem General: Chief complaint: Extremity Injury, Lower Stated complaint: right ankle pain Time Seen by Provider: 03/27/24 09:23 History of Present Illness: 68-year-old male who presents emergency room from [facility] via [facility]. Yesterday he was standing urinating and somewhat twisted his ankle and fell. He is complaining of right ankle pain is also complaining of little bit of buttock discomfort initially said it is buttocks no longer hurt but his ankle still does he has some moderate swelling laterally he did not strike his head there is no loss consciousness he denies any other injury Associated symptoms: Deny chest pain, fever(s) or rash Related Data Home Medications Medication Instructions Recorded Confirmed aspirin 81 mg tablet,delayed 81 mg PO QAM 05/11/22 03/27/24 release atorvastatin 10 mg tablet 10 mg PO QPM 05/11/22 03/27/24 carboxymethylcellulose sodium 0.5 1 drp ophthalmic (eye) BID PRN Dry 05/11/22 03/27/24 % eye drops (Refresh Tears) Eye(S) docusate sodium 100 mg tablet 200 mg PO QAM 05/11/22 03/27/24 glucagon 1 mg solution for 1 mg SUBCUT Q20M PRN Hyperglycemia 05/11/22 03/27/24 injection (Glucagon Emergency Kit) levothyroxine 50 mcg tablet 50 mcg PO QAM 05/11/22 03/27/24 loratadine 10 mg tablet 10 mg PO QAM 05/11/22 03/27/24 magnesium hydroxide 400 mg/5 mL 30 ml PO DAILY PRN Constipation 05/11/22 03/27/24 oral suspension (Milk of Magnesia) metformin 1,000 mg tablet 1,000 mg PO BID 05/11/22 03/27/24 amlodipine 10 mg tablet 10 mg PO DAILY 06/10/23 03/27/24 hydrochlorothiazide 25 mg tablet 25 mg PO DAILY 06/10/23 03/27/24 lisinopril 40 mg tablet 40 mg PO QAM 06/10/23 03/27/24 metoprolol tartrate 25 mg tablet 25 mg PO BID 06/10/23 03/27/24 sodium chloride 1,000 mg soluble 1,000 mg PO QAM 06/10/23 03/27/24 tablet cyanocobalamin (vitamin B-12) 250 250 mcg PO DAILY 12/01/23 03/27/24 mcg tablet insulin degludec 100 unit/mL 35 unit SUBCUT BID 12/01/23 03/27/24 subcutaneous solution (Tresiba U-100 Insulin) acetaminophen 325 mg tablet 650 mg PO Q4H PRN PAIN/FEVER 01/28/24 03/27/24 buspirone 10 mg tablet 10 mg PO TID 01/28/24 03/27/24 albuterol sulfate 90 mcg/actuation 2 puff inhalation Q6H PRN 03/27/24 03/27/24 aerosol inhaler (Ventolin HFA) Bronchospasm fluoxetine 60 mg tablet 60 mg PO DAILY 03/27/24 03/27/24 fluticasone 250 mcg-salmeterol 50 1 ea inhalation DAILY 03/27/24 03/27/24 mcg/dose blistr powdr for inhalation lurasidone 40 mg tablet 40 mg PO QPM 03/27/24 03/27/24 melatonin 3 mg tablet 3 mg PO .HS 03/27/24 03/27/24 oxcarbazepine 150 mg tablet 150 mg PO BID 03/27/24 03/27/24 Previous Rx's Medication Instructions Recorded hydroxyzine HCl 50 mg tablet 50 mg PO TID #90 tabs 08/16/23 oxcarbazepine 300 mg tablet 300 mg PO BID #60 tabs 08/16/23 (Trileptal) Allergies Allergy/AdvReac Type Severity Reaction Status Date / Time No Known Allergies Allergy Verified 12/01/23 10:24 Review of Systems Const: Denies: fever(s) or chills Card: Denies: chest pain Resp: Denies: dyspnea GI: Denies: abdominal pain : Denies: dysuria, urinary frequency or urinary urgency Musc: Denies: neck pain or back pain Skin/Breast: Denies: rash PFSH ED PFSH: Medical History Psychiatric care Hyperlipidemia, unspecified Anemia, unspecified Epilepsy, unspecified, not intractable, without status epilepticus Venous insufficiency (chronic) (peripheral) Hypothyroidism, unspecified Type 2 diabetes mellitus with hyperglycemia Generalized anxiety disorder Unspecified viral 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 Insomnia, unspecified Unspecified disorder of adult personality and behavior Schizophrenia, unspecified Social History Lives independently: No Housing: Longterm Physical Exam Const: COMMON NORMALS: no acute distress GENERAL APPEARANCE: cooperative and comfortable ORIENTATION/CONSCIOUSNESS: Yes awake, Yes oriented to person, Yes oriented to place and Yes oriented to time HENMT: COMMON NORMALS: normocephalic, atraumatic and hearing grossly normal bilaterally HEAD & SCALP: normocephalic and atraumatic Resp: COMMON NORMALS: normal respiratory effort, No retractions, No use of accessory muscles and clear to auscultation bilaterally AUSCULTATION: clear to auscultation bilaterally Cardio: COMMON NORMALS: regular rate, regular rhythm and No murmurs present (Cardio) RATE: regular rate RHYTHM: regular rhythm GI: COMMON NORMALS: Soft to palpation and No hepatosplenomegaly present AUSCULTATION: Yes normoactive bowel sounds PALPATION: Yes Soft to palpation, No Tenderness to palpation present (GI), No Guarding due to palpation present (GI) and Yes No hepatosplenomegaly present Extremity: COMMON NORMALS: normal to inspection, capillary refill normal and no calf tenderness OTHER: Abrasion overlying the right patella Moderate swelling and slight ecchymosis of the lateral malleolus. Neurovascular intact dorsalis pedis posterior tibialis pulse palpable Neuro: SENSORIUM/ORIENTATION: Yes oriented to person, Yes oriented to place and Yes oriented to time Skin: COMMON NORMALS: no rashes or lesions noted GENERAL SKIN EXAM: no rashes or lesions noted Course Vital Signs: Vital signs: Vital Signs Temperature 98.1 F 03/27/24 09:22 Pulse Rate 67 03/27/24 09:33 Respiratory Rate 18 03/27/24 09:22 Blood Pressure 137/75 03/27/24 09:33 Pulse Oximetry 96 03/27/24 09:33 Oxygen Delivery Me thod Room Air 03/27/24 09:33 MDM - Extremity (Nontraumatic) Medical Decision Making X-ray shows distal fibula fracture mildly displaced placed in a posterior splint nonweightbearing ice and elevate as able and will refer to podiatry for definitive treatment. Order outpatient CT for further evaluation. Lab Data Radiology Impressions Ankle X-Ray 03/27/24 09:27 IMPRESSION: 1. Oblique/comminuted fracture of the distal fibula with associated soft tissue swelling. 2. Questionable contour abnormality of the posterior malleolus suggesting possible posterior malleolar fracture. CT should be performed for further assessment. All radiology interpretation(s) finalized by discharge Discharge Plan Discharge Patient Disposition: Home Clinical Impression: Fracture of distal end of fibula, [facility] resident Condition: Stable Prescriptions: No Action hydroxyzine HCl 50 mg tablet 50 mg PO TID Qty: 90 11RF Trileptal 300 mg tablet 300 mg PO BID Qty: 60 11RF Rx Instructions: TAKE ALONG WITH 150 MG TO = 450 MG insulin degludec [Tresiba U-100 Insulin] 100 unit/mL solution 35 unit SUBCUT BID cyanocobalamin (vitamin B-12) 250 mcg tablet 250 mcg PO DAILY acetaminophen 325 mg Tablet 650 mg PO Q4H PRN (Reason: PAIN/FEVER) buspirone 10 mg tablet 10 mg PO TID fluticasone propion-salmeterol 250-50 mcg/dose blister with device 1 ea INHALATION DAILY fluoxetine 60 mg tablet 60 mg PO DAILY albuterol sulfate [Ventolin HFA] 90 mcg/actuation HFA aerosol inhaler 2 puff INHALATION Q6H PRN (Reason: Bronchospasm) oxcarbazepine 150 mg tablet 150 mg PO BID Rx Instructions: TAKE ALONG WITH 300 MG TO MAKE 450MG TWICE DAILY melatonin 3 mg tablet 3 mg PO .HS lurasidone 40 mg tablet 40 mg PO QPM atorvastatin 10 mg tablet 10 mg PO QPM aspirin [Aspir-81] 81 mg Tablet,Delayed Release (Dr/Ec) 81 mg PO QAM magnesium hydroxide [Milk of Magnesia] 400 mg/5 mL Suspension 30 ml PO DAILY PRN (Reason: Constipation) carboxymethylcellulose sodium [Refresh Tears] 0.5 % Drops 1 drp OPHTHALMIC (EYE) BID PRN (Reason: Dry Eye(S)) levothyroxine 50 mcg tablet 50 mcg PO QAM metformin 1,000 mg tablet 1,000 mg PO BID Glucagon Emergency Kit (human) 1 mg Recon Soln 1 mg SUBCUT Q20M PRN (Reason: Hyperglycemia) Rx Instructions: until target blood sugar attained docusate sodium 100 mg Tablet 200 mg PO QAM loratadine 10 mg Tablet 10 mg PO QAM amlodipine 10 mg tablet 10 mg PO DAILY hydrochlorothiazide 25 mg tablet 25 mg PO DAILY lisinopril 40 mg tablet 40 mg PO QAM metoprolol tartrate 25 mg tablet 25 mg PO BID sodium chloride 1,000 mg Tablet,Soluble 1,000 mg PO QAM Discharge Orders: Discharge ED (Routine); Ordered 03/27/24 Ordered By: Giuseppe Hawley Patient Instructions: Opioid Safety, Pain Management Activity Restrictions/Additional Instructions: Thank you for choosing [facility] for your healthcare needs today. It is very important that you follow up as instructed or that you return to the Emergency Department should you have concerns or if your condition changes or worsens in any way. You were seen for right ankle pain. X-ray of your ankle showed a distal fibula fracture. You will be placed in a splint and will arrange for follow-up with podiatry in the clinic. You should be nonweightbearing on this foot elevate whenever possible Coding Level of Care Code ED Integrity Analyst for Keaton Ramos
[2024-03-27 14:29] VITALS: BP 143/110; PULSE 68; O2SAT 97
[2024-03-27 14:41] VITALS: BP 143/110; PULSE 71; O2SAT 96
--- NOTE | 2024-03-27 14:47 | DCPLANNER ---
messaged podiatry for er f/u. faxed ct order to scheduling
--- NOTE | 2024-03-28 08:09 | DCPLANNER ---
Message sent to Podiatry for a referral on a dist fibula fx.
== END 2024-03-27 14:47 | disposition home or self-care (01) ==
PROVIDERS: Emergency Provider Family Medicine
DX: S82.431A Displaced oblique fracture of shaft of right fibula, initial encounter for closed fracture (principal); E78.5 Hyperlipidemia, unspecified; E11.9 Type 2 diabetes mellitus without complications; S80.211A Abrasion, right knee, initial encounter; Z79.4 Long term (current) use of insulin; Z79.82 Long term (current) use of aspirin; X50.1XXA Overexertion from prolonged static or awkward postures, initial encounter; Y92.129 Unspecified place in nursing home as the place of occurrence of the external cause
CPT/HCPCS: 29515; 73610; 99283

== ENCOUNTER → 2024-03-29 14:42 | Outpatient (BNVA) | payer MEDICARE, MEDICAID, SELFPAY | PROVIDERS: Visit Provider Podiatrist Foot & Ankle Surgery | DX: S82.831A Other fracture of upper and lower end of right fibula, initial encounter for closed fracture (principal); Z91.81 History of falling; S82.54XA Nondisplaced fracture of medial malleolus of right tibia, initial encounter for closed fracture; W18.39XA Other fall on same level, initial encounter; E11.9 Type 2 diabetes mellitus without complications; I73.9 Peripheral vascular disease, unspecified; Z79.84 Long term (current) use of oral hypoglycemic drugs; Z79.4 Long term (current) use of insulin | CPT/HCPCS: 27808; 29405; 99214 ==

== ENCOUNTER → 2024-04-17 13:56 | Outpatient (BNVA) | payer MEDICARE, MEDICAID, SELFPAY | PROVIDERS: Visit Provider Podiatrist Foot & Ankle Surgery | DX: S82.51XA Displaced fracture of medial malleolus of right tibia, initial encounter for closed fracture (principal); S82.831A Other fracture of upper and lower end of right fibula, initial encounter for closed fracture; E11.9 Type 2 diabetes mellitus without complications; I73.9 Peripheral vascular disease, unspecified; Z91.81 History of falling; X58.XXXA Exposure to other specified factors, initial encounter; Z79.84 Long term (current) use of oral hypoglycemic drugs; Z79.4 Long term (current) use of insulin | CPT/HCPCS: 73610; 99213 ==

== ENCOUNTER → 2024-05-03 13:37 | Outpatient (BNVA) | payer MEDICARE, MEDICAID, SELFPAY | PROVIDERS: Visit Provider Podiatrist Foot & Ankle Surgery | DX: S82.54XD Nondisplaced fracture of medial malleolus of right tibia, subsequent encounter for closed fracture with routine healing; S82.831D Other fracture of upper and lower end of right fibula, subsequent encounter for closed fracture with routine healing; X58.XXXD Exposure to other specified factors, subsequent encounter; E11.9 Type 2 diabetes mellitus without complications; I73.9 Peripheral vascular disease, unspecified; Z91.81 History of falling; Z79.4 Long term (current) use of insulin; Z79.84 Long term (current) use of oral hypoglycemic drugs | CPT/HCPCS: 73610; 99213 ==

== ENCOUNTER → 2024-05-17 09:32 | Outpatient (BNVA) | payer MEDICARE, MEDICAID, SELFPAY | PROVIDERS: Visit Provider Podiatrist Foot & Ankle Surgery | DX: S82.51XA Displaced fracture of medial malleolus of right tibia, initial encounter for closed fracture (principal); S82.831A Other fracture of upper and lower end of right fibula, initial encounter for closed fracture; X58.XXXA Exposure to other specified factors, initial encounter | CPT/HCPCS: 70150; 73610 ==

== ENCOUNTER 2024-05-17 12:28 | Outpatient (CLI) | payer MEDICARE, MEDICAID, SELFPAY | END 2024-05-17 12:29 | disposition home or self-care (01) | LOC: SPT 12:28 | PROVIDERS: Visit Provider Podiatrist Foot & Ankle Surgery | DX: Z46.89 Encounter for fitting and adjustment of other specified devices (principal); S82.831D Other fracture of upper and lower end of right fibula, subsequent encounter for closed fracture with routine healing; S82.51XD Displaced fracture of medial malleolus of right tibia, subsequent encounter for closed fracture with routine healing; X58.XXXD Exposure to other specified factors, subsequent encounter | CPT/HCPCS: 97760; L4361 ==

== ENCOUNTER → 2024-06-05 09:12 | Outpatient (BNVA) | payer MEDICARE, MEDICAID, SELFPAY | PROVIDERS: PCP Internal Medicine; Visit Provider Podiatrist Foot & Ankle Surgery | DX: I73.9 Peripheral vascular disease, unspecified; S82.831D Other fracture of upper and lower end of right fibula, subsequent encounter for closed fracture with routine healing; Z91.81 History of falling; X58.XXXD Exposure to other specified factors, subsequent encounter | CPT/HCPCS: 73610; 99213 ==